=== PATIENT | female | born 1985 | race African-American/Black ===

== ENCOUNTER 2022-10-14 00:27 | Emergency (ER) | payer OTHER ==
[2022-10-14 00:43] VITALS: BP 110/71; PULSE 83; RESP 18; TEMP 97.8; BMI 25.2
== END 2022-10-14 03:25 | disposition home or self-care (01) ==
LOC: JER 00:27
DX: R07.0 Pain in throat (principal)
CPT/HCPCS: 0241U-QW; 87651; 99283-25